=== PATIENT | male | born 1990 | race Caucasian/White ===

== ENCOUNTER 2016-10-30 00:01 | Emergency (ER) | payer MEDICAID, OTHER ==
[~2016-10-30] VITALS: Ht 170.2 cm; Wt 78.5 kg
[2016-10-30 00:06] VITALS: Ht 170.2 cm; Wt 78.5 kg
[2016-10-30] MEDS ORDERED: ACETAMINOPHEN 500 MG TAB PO STA (00:26)
[2016-10-30] MEDS ORDERED: ACET500C5 PO (00:28)
[2016-10-30] MEDS ORDERED: IBUP-1542 PO (00:28)
[2016-10-30] MEDS ORDERED: IBUPROFEN 200 MG TAB PO ONE (00:30)
--- NOTE | 2016-10-30 01:32 | ERD ---
ER Documentation Chief Complaint Date/Time DATE: 10/30/16 TIME: 01:31 Chief Complaint fever/body aches x 1 day HPI 25-year-old male comes in with history of fever that started about 3-4 hours prior to arrival, body aches, sore throat and headache. Patient states that he took his temperature orally at home and it was 104.2 and he took Motrin 400 mg and he states he is feeling much better. Patient also states that he took a cold shower and feels like his fever has gone down. He reports generalized body aches. No nuchal rigidity, no rashes. Denies chest pain, abdominal pain, nausea, vomiting or diarrhea. Patient is up-to-date vaccinations, otherwise healthy. He denies recent travel. ROS All systems reviewed and are negative except as per history of present illness. Medications Home Meds Active Scripts Ibuprofen* (Motrin*) 600 Mg Tab, 600 MG PO Q6, #30 TAB Prov:REMI SOTO PA-C 10/30/16 Acetaminophen* (Tylophen*) 500 Mg Capsule, 1 CAP PO Q6H Y for PAIN AND OR ELEVATED TEMP, #20 CAP Prov:REMI SOTO PA-C 10/30/16 Allergies Allergies: Coded Allergies: No Known Drug Allergies (Verified Allergy, Unknown, 10/30/16) PMhx/Soc Medical and Surgical Hx: pt denies Medical Hx, pt denies Surgical Hx Hx Alcohol Use: No Hx Substance Use: Yes (MARIJUANA LAST USED [id number]) Hx Tobacco Use: Yes (CIGARS/HOOKAH) Smoking Status: Current every day smoker Physical Exam Vitals Vital Signs Date Time Temp Pulse Resp B/P Pulse Ox O2 Delivery O2 Flow Rate FiO2 10/30/16 00:06 99.5 82 20 120/70 95 Physical Exam General: Well-developed, well-nourished. The patient appears in no acute distress. HEENT: Head is normocephalic, atraumatic. No scleral icterus. Pupils are equal , round, and reactive. Oral mucous membranes are moist. No pharyngeal erythema. Neck: Supple. Nontender. No meningismus Lungs: Clear to auscultation. Normal air movement. Heart: Regular rate and rhythm. S1 and S2 are normal. No murmurs, gallops, or rubs. Abdomen: Soft, nontender, nondistended. Bowel sounds are normoactive. Extremities: No clubbing or cyanosis. Normal pulses. Moving extremities x 4. No weakness. Neurologic: Alert and oriented 3. No focal deficits. Skin: Normal turgor. No rash or lesions. Results 24 hrs Current Medications Medications (Trade) Dose Ordered Sig/Vivienne Route PRN Reason Start Time Stop Time Status Last Admin Dose Admin Acetaminophen (Tylenol Tab) 1,000 mg ONCE STAT PO 10/30/16 00:26 10/30/16 00:28 DC 10/30/16 00:32 Ibuprofen (Motrin) 400 mg ONCE ONCE PO 10/30/16 00:30 10/30/16 00:31 DC 10/30/16 00:32 Procedures/MDM ED course: Patient was treated with Tylenol 1 g by mouth, as well as ibuprofen 400 mg. Medical decision makin-year-old male otherwise healthy comes in with a fever, body aches, sore throat and headache 1 day. Patient's pharyngeal examination is benign, there is no exudate, no erythema. No signs of strep pharyngitis. Additionally he is nontoxic appearing, and in no distress. I doubt sepsis, UTI, pyelonephritis, pneumonia, meningitis, encephalitis. I given instructions to return if he has any worsening symptoms, otherwise continue Tylenol every 4-6 hours as well as ibuprofen 6 hours. Departure Diagnosis: Primary Impression: Viral syndrome Condition: Good Patient Instructions: Viral Syndrome (Adult) Additional Instructions: Call your primary care doctor TOMORROW for an appointment during the next 1-2 days.See the doctor sooner or return here if your condition worsens before your appointment time. REMI SOTO PA-C Oct 30, 2016 01:32
== END 2016-10-30 00:35 | disposition home or self-care (01) ==
LOC: FTE 00:01
DX: B34.9 Viral infection, unspecified (principal); F17.210 Nicotine dependence, cigarettes, uncomplicated
CPT/HCPCS: Z7610 ×2; 99283